=== PATIENT | female | born 1995 | race Caucasian/White ===

== ENCOUNTER 2019-08-15 05:06 | Day surgery (SDC) | payer OTHER ==
[2019-08-12 11:36] VITALS: BMI 25.6
[2019-08-15] MEDS ORDERED: IBUPROFEN 600 MG TABLET (FP) PO PRN (05:44)
[2019-08-15] MEDS ORDERED: ACETAMINOPHEN 325 MG TABLET (FP) PO PRN (05:44)
[2019-08-15] MEDS ORDERED: IBUPROFEN 800 MG/8 ML IJ IVPB PRN (05:44)
--- NOTE | 2019-08-15 05:44 | HP ---
History & Physical Update - History History: No Change - Physical Physical: No Change - Assessment Assessment: No Change - Plan Plan: No Change (No change in HP)
[2019-08-15] MEDS ORDERED: LACTATED RINGERS SOLUTION 1,000 ML IV SCH (05:45)
[2019-08-15] MEDS ORDERED: LIDOCAINE HCL/PF 2% SDV 5ML VIAL ONE (10:06)
[2019-08-15] MEDS ORDERED: PROPOFOL 20 ML ONE (10:06)
[2019-08-15] MEDS ORDERED: fentaNYL CITRATE 250 MCG/5 ML VIAL ONE (10:06)
[2019-08-15] MEDS ORDERED: ROCURONIUM BROMIDE 50 MG/5 ML SYRINGE ONE (10:07)
[2019-08-15] MEDS ORDERED: MIDAZOLAM HCL 2 MG/2 ML SINGLE DOSE VIAL ONE ×3 (10:19→10:25)
[2019-08-15] MEDS ORDERED: ceFAZolin SODIUM 1 GM VIAL IVPB ONE (11:00)
[2019-08-15] MEDS ORDERED: DEXAMETHASONE SOD PHOSPHATE 4 MG/1 ML VIAL ONE ×2 (11:09→11:10)
[2019-08-15] MEDS ORDERED: ceFAZolin SODIUM 1 GM VIAL ONE (11:16)
[2019-08-15] MEDS ORDERED: oxyCODONE HCL 5 MG TABLET PO PRN ×3 (11:47→11:48)
[2019-08-15] MEDS ORDERED: PROMETHAZINE HCL 25 MG/1 ML VIAL IVPUSH PRN (11:47)
[2019-08-15] MEDS ORDERED: ONDANSETRON 4 MG/2 ML VIAL IVPUSH PRN (11:47)
[2019-08-15] MEDS ORDERED: traMADol HCL 50 MG TABLET PO PRN (11:48)
[2019-08-15] MEDS ORDERED: ACETAMINOPHEN 325 MG TABLET (FP) PO SCH (12:00)
[2019-08-15] MEDS ORDERED: NEOSTIGMINE METHYLSULFATE 0.5 MG/ML - 10 ML MDV ONE (12:01)
[2019-08-15] MEDS ORDERED: GLYCOPYRROLATE 0.2 MG/1 ML VIAL ONE (12:01)
[2019-08-15] MEDS ORDERED: ACETAMINOPHEN 1000 MG/100 ML VIAL (NON FORMULARY) IVPB ONE (12:15)
--- NOTE | 2019-08-15 12:46 | OP ---
<Jamin Jean - Last Filed: 08/15/19 12:45> Operative Note - Note: Operative Date: 08/15/19 Pre-Operative Diagnosis: Ovarian cyst Operation: Robotic laproscopic Left ovarian cystectomy Post-Operative Diagnosis: Same as Pre-op Surgeon: Racheal Machuca Harmonic Analyst: Jamin Jean Anesthesiologist/EXTRACTING MACHINE OPERATOR: Aminah Lr Anesthesia: General Estimated Blood Loss (mls): 5 Operative Report Dictated: Yes <Racheal Machuca - Last Filed: 08/15/19 13:10> Operative Note - Note: Operation: robotic laparoscopic left ovarian cystectomy. right ovarian cystectomy Findings: left dermoid 4 cm ovarian cyst right clear 3 cm ovarian cyst Operative Report Dictated: Yes
[2019-08-15] MEDS ORDERED: ACETAMINOPHEN INJECTION 100 ML IVPB ONE (13:07)
[2019-08-15 15:35] VITALS: BP 103/57; PULSE 90; TEMP 97.6
--- NOTE | 2019-08-15 16:36 | SURG ---
Surgery Senior Product Marketing Manager Note Senior Product Marketing Manager: Jamin Jean PA-C Date of Service: 08/15/19 Diagnosis: Ovarian Cyst Procedure: Robotic laproscopic Left ovarian cystectomy I was present for the entirety of the operative procedure. For further detail, please refer to operative report. Visit type - Case Type Case Type: Scheduled - Emergency Emergency Visit: No - New patient This patient is new to me today: Yes Date on this admission: 08/15/19 - Critical Care Critical Care patient: No
[2019-08-15] MEDS ORDERED: oxyCODONE HCL 10 MG SUSTAINED ACTING TABLET PO SCH (22:00)
--- NOTE | 2019-08-16 15:40 | OP ---
DATE OF OPERATION: 08/15/2019 PREOPERATIVE DIAGNOSIS: Left ovarian cyst. POSTOPERATIVE DIAGNOSIS: Left ovarian cyst. Right ovarian cyst. OPERATION: Robotic laparoscopic left ovarian cystectomy and right ovarian cystectomy. SURGEON: Sammy Akins MD. EQUINE BREEDER: ALEX Amanda. COMPUTING SYSTEMS MECHANIC: Aminah Lr CRNA ANESTHESIA: General. ESTIMATED BLOOD LOSS: 5 mL. PROCEDURE: Patient was taken to the operating room, placed in dorsal lithotomy position. Prepped and draped in usual sterile fashion. Timeout was performed in accordance with hospital regulation. Doyle catheter is inserted into the bladder. Attention is then drawn to the umbilicus where an 8-mm umbilical incision was made. Veress needle was inserted into the cavity Doyle. As the CO2 was insufflated in the cavity, Veress needle was then removed and 8-mm trocar was inserted. Laparoscope and camera was attached. Two trocars were placed on the left and the right sides parallel to the umbilical incision; 8-mm incisions were made, and trocars were inserted under direct visualization. CO2 insufflated. Trocars were inserted under direct visualization. Da Ashley robot was side-docked to the patient's bedside, and trocars were then inserted onto the da Ashley robot. The [place] and bipolar instruments were placed after confirmation was placed and camera was attached. Attention was then drawn to the console, where control of the console was done. A 4-cm left ovarian dermoid cyst and a 3-cm right cyst was then seen. The left ovary was elevated and cautery of the cyst was done and the dermoid was seen, and the ovarian cyst was ovary. Right ovary was noted to have also a cyst. Cautery of the right ovary was done, and cyst wall was removed. The trocar was then removed, and the EndoCatch was then inserted, and the cyst was then removed and EndoCatch was used to remove the cyst. Specimen was submitted to pathology. Simeon was then used to close the 10-mm incision using 0 Vicryl suture, and CO2 was removed from the abdomen. All instruments were then removed. The drug GELIi robot had been undocked and placed out of the operative field. Incision was then closed using 3-0 Vicryl in subcuticular fashion, was washed and dressed. Estimated blood loss 5 mL. Patient tolerated procedure well, was taken to recovery room in stable condition. SAMMY AKINS M.D. [id number]
--- NOTE | 2019-08-16 16:15 | PATH ---
Surgical Pathology Report Patient Name: REY SEQUEIRA I. [facility]. Rec. #: [id number] /Age/Gender: 1995 (Age: 24) / F Account: [id number] Location: AMBULATORY SURG Taken: 08/15/2019 Received: 08/15/2019 Reported: 08/16/2019 Physicians: Racheal Machuca M.D. Specimen(s) Received LEFT OVARIAN CYST Clinical History Ovarian cyst Final Diagnosis OVARIAN CYST, LEFT, ROBOTIC LAPAROSCOPIC OVARIAN CYSTECTOMY: MATURE CYSTIC TERATOMA. Electronically Signed Darlyn Lund M.D. Gross Description Received in formalin labeled "left ovarian cyst," is a 3.7 x 2.1 x 1.5 cm intact cyst. The outer surface is nolasco-pink and smooth. Sectioning reveals hair, sebaceous tissue, adipose tissue and a tooth within the lumen. Experimental Psychologist sections are submitted in 3 cassettes. /08/15/2019 saudi/08/15/2019
== END 2019-08-15 16:30 | disposition home or self-care (01) ==
LOC: JASUSAT 05:06
PROVIDERS: ATTEND Obstetrics & Gynecology
PROC: 0UB24ZZ Excision of Bilateral Ovaries, Percutaneous Endoscopic Approach (ICD-10-PCS; principal; 2019-08-15 10:00)
DX: N83.292 Other ovarian cyst, left side (principal); N83.291 Other ovarian cyst, right side
CPT/HCPCS: 84703; 88307-TC; 94760; J0131

== ENCOUNTER 2024-03-18 06:05 | Inpatient (IN) | payer OTHER ==
[2024-03-18 06:32] VITALS: BMI 33.5
[2024-03-18] MEDS: ELECTROLYTE-148 SOLN 500 ML IV SCH (06:35)
[2024-03-18] MEDS: ELECTROLYTE-148 SOLN 1,000 ML IV SCH (07:00)
[2024-03-18] MEDS: CITRIC ACID/SODIUM CITRATE 30 ML UNIT-DOSE CUP PO ONE (07:05)
[2024-03-18] MEDS ORDERED: morphine SULFATE/PF 1 MG/2 ML (2cc Syringe - QUVA) ONE (07:43)
[2024-03-18] MEDS ORDERED: FENTANYL CITRATE/PF 50 MCG/ML VIAL ONE (07:44)
[2024-03-18] MEDS ORDERED: ceFAZolin SODIUM 1 GM VIAL ONE (08:30)
[2024-03-18] MEDS ORDERED: ONDANSETRON 4 MG/2 ML VIAL ONE (08:42)
[2024-03-18] MEDS ORDERED: OXYTOCIN 10 UNITS/ML VIAL ONE ×2 (08:42→08:54)
[2024-03-18] MEDS ORDERED: METHYLERGONOVINE MALEATE 0.2 MG/1 ML AMP IM PRN (09:25)
[2024-03-18 09:41] LABS: CORD BASE EXCESS -0.7 mmol/L (0-2); CORD HCO3 25.7 mmHg (20-29); CORD PCO2 49.1 mmHg (30-78); CORD pH 7.336 (7.14-7.44)
[2024-03-18 09:44] LABS: CORD HCO3 26.1 mmHg (20-29); CORD PCO2 60.3 mmHg (30-78); CORD pH 7.255 (7.14-7.44)
[2024-03-18] MEDS ORDERED: ONDANSETRON 4 MG/2 ML VIAL IVPUSH PRN (10:10)
[2024-03-18 10:42] VITALS: RESP 18
[2024-03-18] MEDS: CEFAZOLIN SODIUM 2 GM in DEXTROSE 5%-WATER 100 ML IVPB SCH (11:27)
[2024-03-18] MEDS ORDERED: IBUPROFEN 800 MG/8 ML IJ IVPB ONE (11:57)
[2024-03-18] MEDS ORDERED: OXYTOCIN 20 UNITS in 0.9% NS 20 UNIT/1,000 ML INFUS.BAG IV ONE (11:57)
[2024-03-18] MEDS: OXYTOCIN 20 UNITS in 0.9% NS 20 UNIT/1,000 ML INFUS.BAG IV SCH (12:00)
[2024-03-18] MEDS: IBUPROFEN 800 MG/8 ML IJ IVPB PRN (12:05)
[2024-03-18] MEDS ORDERED: oxyCODONE HCL 5 MG TABLET PO PRN ×2 (21:25)
[2024-03-19 08:13] LABS: BASO % 0.4 % (0-2.0); HEMATOCRIT 30.8 % (32.4-45.2); HEMOGLOBIN 9.8 GM/dL (10.7-15.3); LYMPH % 14.1 % (8-40); MCHC 31.8 g/dl (32.0-36.0); MEAN PLT VOLUME 7.8 fl (7.5-11.1); MONO % 8.5 % (3.8-10.2); PLATELET COUNT 268 10^3/uL (134-434); RDW 15.1 % (11.6-15.6); WHITE BLOOD COUNT 11.8 K/mm3 (4.0-10.0)
[2024-03-19] MEDS ORDERED: BISACODYL 10 MG SUPP.RECT RC PRN (09:25)
[2024-03-19] MEDS: ENOXAPARIN NA (PORCINE) 40 MG/0.4 ML DISP.SYRIN SQ SCH (09:47)
[2024-03-19] MEDS: ACETAMINOPHEN 325 MG TABLET (FP) PO PRN (14:00)
[2024-03-19] MEDS: SIMETHICONE 80 MG TAB.CHEW (FP) PO PRN (20:15)
[2024-03-19] MEDS: IBUPROFEN 600 MG TABLET (FP) PO PRN (20:15)
[2024-03-20 10:31] VITALS: BP 114/70; PULSE 93; TEMP 98
[2024-03-20] MEDS ORDERED: BISACODYL 10 MG SUPP.RECT PR PRN (13:24)
== END 2024-03-20 14:15 | disposition home or self-care (01) | DRG 540 ==
LOC: JLDR 06:05 → J3W 12:05
PROVIDERS: ADMIT Obstetrics & Gynecology; ATTEND Obstetrics & Gynecology
PROC: 10D00Z1 Extraction of Products of Conception, Low, Open Approach (ICD-10-PCS; principal; 2024-03-18)
DX: O32.1XX0 Maternal care for breech presentation, not applicable or unspecified (principal); Z3A.39 39 weeks gestation of pregnancy; Z37.0 Single live birth
CPT/HCPCS: 36415; 36600; 82803; 85025; 86850; 86900; 86901; 88307-TC; 94010